=== PATIENT | female | born 1985 | race African-American/Black ===

== ENCOUNTER 2017-07-22 17:39 | Emergency (ER) | payer OTHER ==
[~2017-07-22] VITALS: Ht 160 cm; Wt 102.1 kg
[~2017-07-22 17:39] MED LIST: HYDROCHLOROTHIA25 M2 PO; IBUPROFEN 800800 MG PO; LORATIDINE 10 M10 M1; MOTION SICKNESS25 MG; MUCINEX TA600 MG/TA2
[2017-07-22] MEDS ORDERED: ONDANSETRON HCL4 M2 PO (18:58)
[2017-07-22] MEDS ORDERED: ULTRAM 50MG TAB50 MG PO (18:58)
[2017-07-22] MEDS ORDERED: IBUPROFEN 600600 M1 PO (18:58)
== END 2017-07-22 19:16 | disposition home or self-care (01) ==
LOC: ER 17:39
DX: R51 Headache (principal); R11.2 Nausea with vomiting, unspecified; J06.9 Acute upper respiratory infection, unspecified; I10 Essential (primary) hypertension